=== PATIENT | male | born 1960 | race Caucasian/White ===

== ENCOUNTER 2021-04-17 19:54 | Observation (INO) | payer OTHER ==
[2021-04-17 21:02] LABS: Absolute Lymphocytes (CBC) 1.4 K/uL (0.7-4.9); Basophils % 1.4 % (0-1.3); Hematocrit 31.9 % (39.6-49.0); Lymphocytes % 18.1 % (15.3-44.8); MPV 7.6 fL (7.6-11.3); RBC Red Blood Cell Count 4.62 M/uL (4.33-5.43)
--- NOTE | 2021-04-17 21:02 | ER ---
Nurse's Notes [facility] Name: Raquel Mascorro Age: 60 yrs Sex: Male : 1960 Arrival Date: 04/17/2021 Time: 19:58 Bed 8 Private MD: Diagnosis: COPD/ Chronic obstructive pulmonary disease with (acute) exacerbation;Gastro-esophageal reflux disease with esophagitis Presentation: 04/17 20:03 Chief complaint: Patient states: he has been having difficulty breathing with chest bb pain for about 2 to 3 hours now pt states his chest pain is from his bad acid reflux. Coronavirus screen: difficulty breathing, Client presents with at least one sign or symptom that may indicate coronavirus-19. Standard/surgical mask placed on the client. Ebola Screen: No symptoms or risks identified at this time. Initial Sepsis Screen: Does the patient meet any 2 criteria? No. Patient's initial sepsis screen is negative. Does the patient have a suspected source of infection? No. Patient's initial sepsis screen is negative. Risk Assessment: Do you want to hurt yourself or someone else? Patient reports no desire to harm self or others. Onset of symptoms was April 17, 2021. 20:03 Method Of Arrival: Ambulatory bb 20:03 Acuity: YURIY 2 bb Triage Assessment: 20:04 General: Appears uncomfortable, Behavior is cooperative. Pain: Complains of pain in bb chest Pain currently is 7 out of 10 on a pain scale. Neuro: Level of Consciousness is awake, alert, obeys commands, Oriented to person, place, time, situation. Cardiovascular: Capillary refill < 3 seconds Patient's skin is warm and dry. Respiratory: Reports shortness of breath Respiratory effort is labored, Onset: The symptoms/episode began/occurred suddenly, the patient has mild shortness of breath. Derm: Skin is pink, warm \T\ dry. Musculoskeletal: Circulation, motion, and sensation intact. Historical: - Allergies: 20:04 Lisinopril; bb 20:04 Toradol; bb - Home Meds: 20:04 Unable to obtain [Active]; bb - PMHx: 20:04 Chronic obstructive lung disease; Hypertensive disorder; GERD; bb - PSHx: 20:04 back surgery; left leg amputation; right foot; bb - Immunization history:: Adult Immunizations up to date, Eduardo \T\ Eduardo. - Social history:: Smoking status: Patient reports the use of cigarette tobacco products, smokes one-half pack cigarettes per day, Patient uses alcohol, occasionally. Patient/guardian denies using street drugs. Screenin:45 Abuse screen: Denies threats or abuse. Denies injuries from another. Nutritional jm8 screening: No deficits noted. Tuberculosis screening: No symptoms or risk factors identified. Fall Risk None identified. Assessment: 20:45 Respiratory: Airway is patent Trachea midline Respiratory effort is even, unlabored, jm8 Respiratory pattern is regular, symmetrical, Breath sounds with wheezes bilaterally. 21:23 Cardiovascular: Rhythm is sinus rhythm. jm8 04/18 00:47 Reassessment: Patient and/or family updated on plan of care and expected duration. Pain ak2 level reassessed. Vital Signs: 04/17 20:03 BP 134 / 90; Pulse 97; Resp 20 S; Temp 98.2(O); Pulse Ox 97% on R/A; Weight 77.11 kg bb (R); Height 5 ft. 8 in. (172.72 cm) (R); Pain 7/10; 23:02 BP 145 / 92; Pulse 93; Resp 16; Pulse Ox 96% on R/A; jm8 20:03 Body Mass Index 25.85 (77.11 kg, 172.72 cm) bb ED Course: 19:58 Patient arrived in ED. es 20:04 Triage completed. bb 20:04 Arm band placed on. bb 20:31 Eliu Richardson MD is Attending Physician. molly 20:45 Allergy band placed. Placed in gown. Bed in low position. Call light in reach. Side jm8 rails up X2. 20:54 Cornelio Roland DO is Hospitalizing Provider. molly 21:03 Hospitalizing Provider role handed off by Cornelio Roland DO molly 21:03 Nestor Sharp MD is Hospitalizing Provider. molly 21:03 Eddi Sharp MD is Hospitalizing Provider. molly 21:12 XRAY Chest (1 view) In Process Unspecified. EDMS 21:19 Ezio Jones is Primary Nurse. ak2 23:52 CT Aorta for Dissection In Process Unspecified. EDMS 04/18 07:00 No provider procedures requiring assistance completed. Patient admitted, IV remains in sv place. intact. 09:43 Primary Nurse role handed off by Ezio Jones 09:43 Marisol Tinajero, RN is Primary Nurse. sv Administered Medications: 04/17 21:16 Drug: GI Cocktail without - (Maalox Suspension 30 ml, Lidocaine Liquid 2 % 15 jm8 ml) Route: PO; 21:31 Follow up: Response: No adverse reaction 8 21:16 Drug: ProTONIX (pantoprazole) 40 mg Route: IVP; Site: right antecubital; jm8 21:31 Follow up: Response: No adverse reaction 8 21:16 Drug: NS 0.9% 1000 ml Route: IV; Rate: 125 ml/hr; Site: right antecubital; jm8 21:16 Drug: SOLU-Medrol (methylPrednisoLONE) 125 mg Route: IVP; Site: right antecubital; jm8 21:31 Follow up: Response: No adverse reaction 8 21:16 Drug: Xopenex (levalbuterol) 1.25 mg Route: Inhalation; jm8 21:16 Drug: AtroVENT (ipratropium) Aerosol 0.5 mg Route: Inhalation; jm8 21:16 Drug: Rocephin (cefTRIAXone) 1 grams Route: IV; Rate: per protocol; Site: right [facility] antecubital; 21:17 Follow up: Response: No adverse reaction; IV Status: Completed infusion jm8 21:19 Drug: Zithromax (azithromycin) 500 mg Route: IVPB; Infused Over: 1 hrs; Site: right 8 antecubital; 22:59 Follow up: Response: No adverse reaction; IV Status: Completed infusion jm8 21:28 Drug: morphine 4 mg Route: IVP; Site: right antecubital; jm8 21:52 Follow up: Response: No adverse reaction jm8 21:28 Drug: Zofran (Ondansetron) 4 mg Route: IVP; Site: right antecubital; jm8 21:52 Follow up: Response: No adverse reaction jm8 22:07 Drug: Dilaudid (HYDROmorphone) 1 mg Route: IVP; Site: right antecubital; jm8 23:01 Follow up: Response: No adverse reaction jm8 22:07 Drug: Zofran (Ondansetron) 4 mg Route: IVP; Site: right antecubital; jm8 23:01 Follow up: Response: No adverse reaction jm8 22:07 Drug: Nitroglycerin 0.4 mg Route: Sublingual; jm8 23:02 Follow up: Response: No adverse reaction jm8 22:10 Drug: Aspirin Chewable Tablet 324 mg Route: PO; ak2 23:02 Follow up: Response: No adverse reaction jm8 23:51 Drug: NS 0.9% 1000 ml Route: IV; Rate: 75 ml/hr; Site: right antecubital; ak2 04/18 00:16 Drug: Dilaudid (HYDROmorphone) 1 mg Route: IVP; Site: right antecubital; jm8 04:16 Follow up: Response: No adverse reaction jm8 04:13 Drug: Squires (HYDROcodone-acetaminophen) (7.5 mg-325 mg) 1 tabs Route: PO; jm8 04:16 Follow up: Response: No adverse reaction jm8 04:13 Drug: Ketorolac 30 mg Route: IVP; Site: right antecubital; jm8 04:16 Follow up: Response: No adverse reaction jm8 04:21 Drug: Benadryl (diphenhydrAMINE) 50 mg Route: IVP; Site: right antecubital; jm8 05:25 Follow up: Response: No adverse reaction jm8 04:21 Drug: Pepcid (famotidine) 20 mg Route: IVP; Site: right antecubital; jm8 05:25 Follow up: Response: No adverse reaction jm8 Outcome: 04/17 21:01 Decision to Hospitalize by Provider. molly 04/18 07:00 Admitted to ER Hold. Please see [facility] for further documentation. sv Condition: stable Instructed on the need for admit. 12:33 Patient left the ED. sv Signatures: Dispatcher [employer] Marisol Preciado RN RN sv Anderson, Corey, MD MD cha Salyer, Edna es Ballard, Brenda, RN RN bb Malcaba, Joseph, RN RN jm8 [place], Anthony [facility]
--- NOTE | 2021-04-17 21:02 | EDPHYS ---
Physician Documentation [facility] Name: Raquel Mascorro Age: 60 yrs Sex: Male : 1960 Arrival Date: 04/17/2021 Time: 19:58 Bed 8 Private MD: CHET Physician Eliu Richardson HPI: 04/17 20:47 This 60 yrs old Male presents to ER via Ambulatory with complaints of molly Breathing Difficulty. 20:47 The patient has shortness of breath with light activity. Onset: The symptoms/episode molly began/occurred 3 day(s) ago. Duration: The symptoms are continuous, and are steadily getting worse. The patient's shortness of breath has no apparent modifying factors. Associated signs and symptoms: The patient has no apparent associated signs or symptoms. Severity of symptoms: At their worst the symptoms were moderate in the emergency department the symptoms are unchanged. The patient has experienced similar episodes in the past, multiple times. Historical: - Allergies: 20:04 Lisinopril; bb 20:04 Toradol; bb - Home Meds: 20:04 Unable to obtain [Active]; bb - PMHx: 20:04 Chronic obstructive lung disease; Hypertensive disorder; GERD; bb - PSHx: 20:04 back surgery; left leg amputation; right foot; bb - Immunization history:: Adult Immunizations up to date, Eduardo \T\ Eduardo. - Social history:: Smoking status: Patient reports the use of cigarette tobacco products, smokes one-half pack cigarettes per day, Patient uses alcohol, occasionally. Patient/guardian denies using street drugs. ROS: 20:48 Constitutional: Negative for fever, chills, and weight loss, Eyes: Negative for injury, molly pain, redness, and discharge, ENT: Negative for injury, pain, and discharge, Neck: Negative for injury, pain, and swelling, Cardiovascular: Negative for chest pain, palpitations, and edema, Back: Negative for injury and pain, : Negative for injury, bleeding, discharge, and swelling, MS/Extremity: Negative for injury and deformity, Skin: Negative for injury, rash, and discoloration, Neuro: Negative for headache, weakness, numbness, tingling, and seizure, Psych: Negative for depression, anxiety, suicide ideation, homicidal ideation, and hallucinations, Allergy/Immunology: Negative for hives, rash, and allergies, Endocrine: Negative for neck swelling, polydipsia, polyuria, polyphagia, and marked weight changes, Hematologic/Lymphatic: Negative for swollen nodes, abnormal bleeding, and unusual bruising. 20:48 Respiratory: Positive for cough, with no reported sputum, shortness of breath, at rest. Exam: 20:48 Constitutional: This is a well developed, well nourished patient who is awake, alert, molly and in no acute distress. Head/Face: Normocephalic, atraumatic. Eyes: Pupils equal round and reactive to light, extra-ocular motions intact. Lids and lashes normal. Conjunctiva and sclera are non-icteric and not injected. Cornea within normal limits. Periorbital areas with no swelling, redness, or edema. ENT: Nares patent. No nasal discharge, no septal abnormalities noted. Tympanic membranes are normal and external auditory canals are clear. Oropharynx with no redness, swelling, or masses, exudates, or evidence of obstruction, uvula midline. Mucous membranes moist. Neck: Trachea midline, no thyromegaly or masses palpated, and no cervical lymphadenopathy. Supple, full range of motion without nuchal rigidity, or vertebral point tenderness. No Meningismus. Chest/axilla: Normal chest wall appearance and motion. Nontender with no deformity. No lesions are appreciated. Cardiovascular: Regular rate and rhythm with a normal S1 and S2. No gallops, murmurs, or rubs. Normal PMI, no JVD. No pulse deficits. Abdomen/GI: Soft, non-tender, with normal bowel sounds. No distension or tympany. No guarding or rebound. No evidence of tenderness throughout. Back: No spinal tenderness. No costovertebral tenderness. Full range of motion. Male : Normal genitalia with no discharge or lesions. Skin: Warm, dry with normal turgor. Normal color with no rashes, no lesions, and no evidence of cellulitis. MS/ Extremity: Pulses equal, no cyanosis. Neurovascular intact. Full, normal range of motion. Neuro: Awake and alert, GCS 15, oriented to person, place, time, and situation. Cranial nerves II-XII grossly intact. Motor strength 5/5 in all extremities. Sensory grossly intact. Cerebellar exam normal. Normal gait. Psych: Awake, alert, with orientation to person, place and time. Behavior, mood, and affect are within normal limits. 20:48 Respiratory: mild respiratory distress is noted, Respirations: labored breathing, that is mild, Breath sounds: decreased breath sounds, rhonchi, stridor, is not appreciated, + upper airway congestion. wheezing: expiratory Respiratory rate: 97 21:01 ECG was reviewed by the Attending Physician. molly 22:04 ECG was reviewed by the Attending Physician. [facility] Vital Signs: 20:03 BP 134 / 90; Pulse 97; Resp 20 S; Temp 98.2(O); Pulse Ox 97% on R/A; Weight 77.11 kg bb (R); Height 5 ft. 8 in. (172.72 cm) (R); Pain 7/10; 23:02 BP 145 / 92; Pulse 93; Resp 16; Pulse Ox 96% on R/A; jm8 20:03 Body Mass Index 25.85 (77.11 kg, 172.72 cm) bb MDM: 20:31 Patient medically screened. molly 20:50 Differential diagnosis: Anxiety Reaction asthma, Bronchitis CHF exacerbation, Chronic molly Obstructive Pulmonary Disease pneumonia, pulmonary edema, Unstable Angina bowel obstruction, coronary artery disease, cholecystitis, Cholelithiasis, gastritis, Hepatitis, myocardia ischemia or infarction, non-specific abd pain, pancreatitis, Pyelonephritis, Ureterolithiasis, urinary tract infection. Antibiotic administration: Rocephin and Zithromax given. The patient's Wells Deep Vein Thrombosis Score was calculated as follows: Total Score: 0-2 Pts- Low Risk. The patient's pulmonary embolism risk score was calculated as follows: Total Score: 0-2 points. This patient was found to be at low risk for a pulmonary embolism by using the Well's assessment criteria. Immunization status: Influenza vaccine: Data reviewed: vital signs, nurses notes, lab test result(s), EKG, radiologic studies, plain films. Data interpreted: court recording monitor: rate is 97 beats/min, rhythm is regular, Pulse oximetry: on room air is 97 %. Test interpretation: by ED physician or midlevel provider: ECG, plain radiologic studies. Counseling: I had a detailed discussion with the patient and/or guardian regarding: the historical points, exam findings, and any diagnostic results supporting the discharge/admit diagnosis, lab results, radiology results, the need for further work-up and treatment in the hospital. 04/17 20:47 Order name: Basic Metabolic Panel; Complete Time: 23:35 [facility] 04/17 20:47 Order name: CBC with Diff; Complete Time: 21:59 [facility] 04/17 20:47 Order name: LFT's; Complete Time: 23:35 [facility] 04/17 20:47 Order name: Magnesium; Complete Time: 23:35 [facility] 04/17 20:47 Order name: NT PRO-BNP; Complete Time: 23:35 [facility] 04/17 20:47 Order name: PT-INR; Complete Time: 21:59 [facility] 04/17 20:47 Order name: Troponin (emerg Dept Use Only); Complete Time: 23:35 [facility] 04/17 20:47 Order name: Lipase; Complete Time: 23:35 [facility] 04/17 21:33 Order name: CBC Smear Scan; Complete Time: 21:59 [facility] 04/17 22:43 Order name: SARS-COV-2 RT PCR; Complete Time: 22:58 [facility] 04/18 08:01 Order name: CBC with Automated Diff [facility] 04/18 08:29 Order name: Comprehensive Metabolic Panel [facility] 04/18 08:29 Order name: Troponin I [facility] 04/17 20:47 Order name: XRAY Chest (1 view); Complete Time: 21:22 [facility] 04/17 22:05 Order name: CT Aorta for Dissection [facility] 04/18 08:29 Order name: Lipid Profile [facility] 04/18 08:29 Order name: T4 Free [facility] 04/18 08:29 Order name: Thyroid Stimulating Hormone [facility] 04/18 08:43 Order name: CBC Smear Scan [facility] 04/17 20:47 Order name: EKG; Complete Time: 20:48 [facility] 04/17 20:47 Order name: Cardiac monitoring; Complete Time: 21:23 [facility] 04/17 20:47 Order name: EKG - Nurse/Tech; Complete Time: 21:23 [facility] 04/17 20:47 Order name: IV Saline Lock; Complete Time: 21:23 [facility] 04/17 20:47 Order name: Labs collected and sent; Complete Time: 21:23 [facility] 04/17 20:47 Order name: O2 Per Protocol; Complete Time: 21:23 [facility] 04/17 20:47 Order name: O2 Sat Monitoring; Complete Time: 21:23 [facility] EC:01 Rate is 88 beats/min. Rhythm is regular. QRS [place] is Normal. OK interval is normal. QRS molly interval is normal. QT interval is prolonged at 410 msec. No Q waves. T waves are Normal. No ST changes noted. Clinical impression: NSR w/ Non-specific ST/T Changes and No evidence of ischemia. Interpreted by me. Reviewed by me. 22:04 Rate is 89 beats/min. Rhythm is regular. QRS [place] is Normal. OK interval is normal. QRS molly interval is normal. QT interval is normal. No Q waves. T waves are Normal. No ST changes noted. Clinical impression: NSR w/ Non-specific ST/T Changes and No evidence of ischemia. Interpreted by me. Reviewed by me. Administered Medications: 21:16 Drug: GI Cocktail without - (Maalox Suspension 30 ml, Lidocaine Liquid 2 % 15 jm8 ml) Route: PO; :31 Follow up: Response: No adverse reaction [facility] :16 Drug: ProTONIX (pantoprazole) 40 mg Route: IVP; Site: right antecubital; [facility] :31 Follow up: Response: No adverse reaction [facility] :16 Drug: NS 0.9% 1000 ml Route: IV; Rate: 125 ml/hr; Site: right antecubital; jm8 :16 Drug: SOLU-Medrol (methylPrednisoLONE) 125 mg Route: IVP; Site: right antecubital; 8 :31 Follow up: Response: No adverse reaction [facility] :16 Drug: Xopenex (levalbuterol) 1.25 mg Route: Inhalation; 8 :16 Drug: AtroVENT (ipratropium) Aerosol 0.5 mg Route: Inhalation; 8 :16 Drug: Rocephin (cefTRIAXone) 1 grams Route: IV; Rate: per protocol; Site: right [facility] antecubital; 21:17 Follow up: Response: No adverse reaction; IV Status: Completed infusion jm8 :19 Drug: Zithromax (azithromycin) 500 mg Route: IVPB; Infused Over: 1 hrs; Site: right [facility] antecubital; 22:59 Follow up: Response: No adverse reaction; IV Status: Completed infusion 8 :28 Drug: morphine 4 mg Route: IVP; Site: right antecubital; [facility] 21:52 Follow up: Response: No adverse reaction [facility] :28 Drug: Zofran (Ondansetron) 4 mg Route: IVP; Site: right antecubital; jm8 21:52 Follow up: Response: No adverse reaction jm8 22:07 Drug: Dilaudid (HYDROmorphone) 1 mg Route: IVP; Site: right antecubital; jm8 23:01 Follow up: Response: No adverse reaction jm8 22:07 Drug: Zofran (Ondansetron) 4 mg Route: IVP; Site: right antecubital; jm8 23:01 Follow up: Response: No adverse reaction jm8 22:07 Drug: Nitroglycerin 0.4 mg Route: Sublingual; jm8 23:02 Follow up: Response: No adverse reaction jm8 22:10 Drug: Aspirin Chewable Tablet 324 mg Route: PO; ak2 23:02 Follow up: Response: No adverse reaction jm8 23:51 Drug: NS 0.9% 1000 ml Route: IV; Rate: 75 ml/hr; Site: right antecubital; ak2 04/18 00:16 Drug: Dilaudid (HYDROmorphone) 1 mg Route: IVP; Site: right antecubital; jm8 04:16 Follow up: Response: No adverse reaction jm8 04:13 Drug: [place] (HYDROcodone-acetaminophen) (7.5 mg-325 mg) 1 tabs Route: PO; jm8 04:16 Follow up: Response: No adverse reaction jm8 04:13 Drug: Ketorolac 30 mg Route: IVP; Site: right antecubital; jm8 04:16 Follow up: Response: No adverse reaction jm8 04:21 Drug: Benadryl (diphenhydrAMINE) 50 mg Route: IVP; Site: right antecubital; jm8 05:25 Follow up: Response: No adverse reaction jm8 04:21 Drug: Pepcid (famotidine) 20 mg Route: IVP; Site: right antecubital; jm8 05:25 Follow up: Response: No adverse reaction jm8 Disposition Summary: 04/17/21 21:01 Hospitalization Ordered Hospitalization Status: Observation molly Condition: Fair molly Problem: new molly Symptoms: have improved molly Bed/Room Type: Standard molly Provider: Eddi Sharp(04/17/21 21:03) molly Location: [facility] ER HOLD(04/17/21 23:07) Room Assignment: ERHOLD-(04/17/21 23:07) cg Diagnosis - COPD/ Chronic obstructive pulmonary disease with (acute) exacerbation molly - Gastro-esophageal reflux disease with esophagitis molly Forms: - Medication Reconciliation Form molly - SBAR form molly Signatures: Dispatcher [employer] EDMS Eliu Richardson MD MD cha Munoz, Edgar, RN RN em Ballard, Brenda, RN RN bb Attema, Lee, FNP-Ebony RONDONP-Arnel1 Jeri Vinson RN RN cg Malcaba, Joseph, RN RN jm8 Kapol[place], Anthony ak2 Corrections: (The following items were deleted from the chart) 04/17 21:03 21:01 Cornelio Roland cha [facility] 21:37 20:48 CORONAVIRUS+MR.LAB.BRZ ordered. [facility] 23:07 21:01 Telemetry/MedSurg (observation) [facility] 23: 21:01 molly
[2021-04-17 21:03] LABS: Protime INR 0.91
[2021-04-17] MEDS ORDERED: METHYLPREDNISOLONE 125 MG INJ ONE (21:12)
[2021-04-17] MEDS ORDERED: MAGNES/ALUMIN/SIMET 30ML UCUP ONE (21:12)
[2021-04-17] MEDS ORDERED: IPRATROPIUM BROM 0.5MG/2.5ML ONE (21:13)
[2021-04-17] MEDS ORDERED: PANTOPRAZOLE 40 MG INJ ONE (21:13)
[2021-04-17] MEDS ORDERED: AZITHROMYCIN 500 MG INJ IVPB ONE (21:13)
[2021-04-17] MEDS ORDERED: LEVALBUTEROL 1.25 MG/3 ML NEB ONE (21:13)
[2021-04-17] MEDS ORDERED: LIDOCAINE VISCOUS 2% SOLN 15 ML UDC ONE (21:14)
[2021-04-17] MEDS ORDERED: NA CHLORIDE 0.9% 50 ML ONE (21:14)
[2021-04-17] MEDS ORDERED: NA CHLORIDE 0.9% 250 ML ONE (21:14)
[2021-04-17] MEDS ORDERED: NA CHLORIDE 0.9% 1,000 ML ONE (21:14)
[2021-04-17] MEDS ORDERED: CEFTRIAXONE/SWI 1gm 1 GM/10 ML SYR ONE (21:14)
--- NOTE | 2021-04-17 21:19 | RAD REPORT ---
EXAM DESCRIPTION: RAD - Chest Single View - 04/17/2021 9:12 pm CLINICAL HISTORY: COPD;Cough Chest pain. COMPARISON: <Comparisons> FINDINGS: Portable technique limits examination quality. The lungs are mildly emphysematous but grossly clear. Left pleural thickening is noted. The heart is normal in size. No displaced fractures.
[2021-04-17 21:33] LABS: Platelet Estimate INCR; Platelets, Giant MOD; White Blood Cell Scan OK (OK)
[2021-04-17 21:34] LABS: Anisocytosis 2+; Blood Morphology Comment NOTED (NOT SEEN); Hypochromasia 1+; Macrocytosis 1+
[2021-04-17] MEDS ORDERED: MORPHINE 4 MG/ML SYR ONE (21:48)
[2021-04-17] MEDS ORDERED: ONDANSETRON 4 MG/2 ML VIAL ONE ×2 (21:48→22:24)
[2021-04-17] MEDS ORDERED: NITROGLYCERIN 0.4 MG/TAB SL ONE (22:24)
[2021-04-17] MEDS ORDERED: HYDROMORPHONE HCL 1 MG/ML INJ ONE (22:24)
[2021-04-17] MEDS ORDERED: ASPIRIN 81 MG CHEWABLE TABLET ONE (22:31)
--- NOTE | 2021-04-17 23:15 | P.HP ---
Certification for Inpatient Patient admitted to: Observation With expected LOS: <2 Midnights Patient will require the following post-hospital care: None Practitioner: I am a practitioner with admitting privileges, knowledge of patient current condition, hospital course, and medical plan of care. Services: Services provided to patient in accordance with Admission requirements found in Title 42 Section 412.3 of the Code of Federal Regulations Patient History Date of Service: 04/18/21 Primary Care Provider: Out of town Reason for admission: COPD exacerbation, chest pain History of Present Illness: 60-year-old male with history of COPD, hypertension, GERD presents emergency department for chest pain and shortness of breath. Patient with expiratory wheezing, sharp nonradiating substernal chest pain. EKG, initial troponin, chest x-ray unremarkable, patient still dyspneic, tachypneic, wheezing after nebulizer treatments, steroids in the emergency department, ED provider wishes to admit for further evaluation and management. - Past Medical/Surgical History -: COPD -: GERD -: Hypertension -: Left BKA -: Right ankle surgery -: Back surgery Psychosocial/ Personal History: Disabled, lives with family - Family History Family History: Reviewed- Non-Contributory - Social History Smoking Status: Current every day smoker Counseled patient to stop smoking for: less than 10 minutes Smoking therapy provided: Yes Alcohol use: No CD- Drugs: No Caffeine use: Yes Place of Residence: Home Review of Systems 10-point ROS is otherwise unremarkable Respiratory: Cough, Shortness of Breath, Wheezing Cardiovascular: Chest Pain, As per HPI Physical Examination - Physical Exam General: Alert, In no apparent distress, Oriented x3 HEENT: Atraumatic, PERRLA, Mucous membr. moist/pink Neck: Supple, 2+ carotid pulse no bruit, No LAD Respiratory: Diminished, Expiratory wheezes Cardiovascular: Regular rate/rhythm, Normal S1 S2 Gastrointestinal: Normal bowel sounds, No tenderness Musculoskeletal: No tenderness Integumentary: No rashes Neurological: Normal speech, Normal strength at 5/5 x4 extr, Normal tone, Normal affect - Studies Laboratory Data (last 24 hrs) 04/17/21 20:50: PT 10.4, INR 0.91 04/17/21 20:50: WBC 7.70, Hgb 10.4 L, Hct 31.9 L, Plt Count 504 H Assessment and Plan - Plan Assessment COPD with exacerbation Chest pain rule out ACS Incidental finding of 4 mm pulmonary nodule GERD Hypertension Tobacco abuse Plan COPD with exacerbation: Continue with scheduled nebs, IV steroids, inhalers, incentive spirometry. Will provide patient with p.r.n. pain medication, DVT prophylaxis Lovenox 40 mg subcutaneous once daily. Chest pain rule out ACS: Monitor on telemetry, trend troponins, cardiology consult in place. Daily aspirin, statin therapy. Lipid panel with morning labs. Incidental finding of 4 mm pulmonary nodule: Patient made aware, notified of recommendation for [address] GERD: Continue home medications, will provide patient with Protonix. Hypertension: Continue home med Tobacco abuse: Will provide Nicoderm patch, address need for cessation. Discharge Plan: Home Plan to discharge in: 24 Hours - Advance Directives Does patient have a Living Will: No Does patient have a Durable POA for Healthcare: No - Code Status/Comfort Care Code Status Assessed: Yes (Full code) Critical Care: No Time Spent Managing Pts Care (In Minutes): 55
[2021-04-17 23:32] LABS: ALT/SGPT 18 U/L (12-78); AST/SGOT 13 U/L (15-37); Albumin 3.9 g/dL (3.4-5.0); Alkaline Phosphatase 104 U/L (45-117); BUN Blood Urea Nitrogen 17 mg/dL (7-18); Bicarbonate 23 mmol/L (21-32); Bilirubin Direct 0.1 mg/dL (0-0.2); Bilirubin Total 0.5 mg/dL (0.2-1.0); Glucose Level 106 mg/dL (74-106); Lipase 60 U/L (73-393); Magnesium 2.3 mg/dL (1.8-2.4); NT PRO-BNP 80 pg/mL (<125); Protein, Total 7.6 g/dL (6.4-8.2); Sodium Level 128 mmol/L (136-145); Troponin (Emerg Dept Use Only) < 0.02 ng/mL (0.0-0.045)
[2021-04-18] MEDS ORDERED: HYDROMORPHONE HCL 1 MG/ML INJ ONE (00:35)
[2021-04-18] MEDS ORDERED: HYDROCODONE/APAP 7.5/325 MG TAB ONE (04:25)
[2021-04-18] MEDS ORDERED: KETOROLAC 30 MG/ML INJ ONE (04:26)
[2021-04-18] MEDS ORDERED: FAMOTIDINE 20 MG/2 ML VIAL IV ONE (04:39)
[2021-04-18] MEDS ORDERED: DIPHENHYDRAMINE 50 MG/ML VIAL ONE (04:39)
[2021-04-18] MEDS ORDERED: ONDANSETRON 4 MG/2 ML VIAL IV PRN (07:17)
[2021-04-18] MEDS ORDERED: NA CHLORIDE 0.9% 1,000 ML IV SCH (07:17)
[2021-04-18] MEDS ORDERED: HYDROCODONE/APAP 7.5/325 MG TAB PO PRN (07:17)
[2021-04-18] MEDS: IPRATROPIUM BROM 0.5MG/2.5ML NEB SCH ×2 (07:17→07:59)
[2021-04-18] MEDS: ALBUTEROL 2.5 MG/3 ML NEB SOL NEB SCH ×2 (07:17→07:59)
[2021-04-18] MEDS ORDERED: METHYLPREDNISOLONE 125 MG INJ IV SCH (07:17)
[2021-04-18] MEDS ORDERED: SODIUM CHLORIDE 0.9% 10ML INJ IV PRN (07:17)
[2021-04-18] MEDS ORDERED: ACETAMINOPHEN 500 MG TAB PO PRN (07:17)
[2021-04-18] MEDS ORDERED: MORPHINE 2 MG/ML SYR IV PRN (07:17)
--- NOTE | 2021-04-18 07:43 | EKG ---
Test Date: 2021-04-17 Test Time: 22:00:52 Agile Scrum Master: MEASUREMENT RESULTS: Intervals: Rate: 89 KY: 124 QRSD: 84 QT: 394 QTc: 479 [place]: P: 54 [place]: 124 QRS: 35 T: 49 INTERPRETIVE STATEMENTS: Normal sinus rhythm Nonspecific ST and T wave abnormality Abnormal ECG Compared to ECG 04/17/2021 20:43:28 ST (T wave) deviation now present Atrial premature complex(es) no longer present Prolonged QT interval no longer present Electronically Signed On 04-18-21 07:42:30 CDT by Satinder Mckay
[2021-04-18 07:53] LABS: Absolute Lymphocytes (CBC) 0.4 K/uL (0.7-4.9); Basophils % 0.5 % (0-1.3); Hematocrit 28.4 % (39.6-49.0); Lymphocytes % 8.5 % (15.3-44.8); MPV 7.4 fL (7.6-11.3); RBC Red Blood Cell Count 4.02 M/uL (4.33-5.43)
[2021-04-18] MEDS ORDERED: IPRATROPIUM BROM 0.5MG/2.5ML ONE (08:14)
[2021-04-18] MEDS ORDERED: ALBUTEROL 2.5 MG/3 ML NEB SOL ONE (08:14)
[2021-04-18] MEDS ORDERED: METHYLPREDNISOLONE 125 MG INJ ONE (08:19)
[2021-04-18] MEDS ORDERED: ASPIRIN EC 81 MG TAB PO ONE (08:19)
[2021-04-18] MEDS ORDERED: ENOXAPARIN 40 MG/0.4 ML SQ ONE (08:20)
[2021-04-18] MEDS ORDERED: PANTOPRAZOLE 40 MG INJ ONE (08:20)
[2021-04-18] MEDS ORDERED: SUCRALFATE 1 GM TABLET ONE ×2 (08:20→12:13)
[2021-04-18] MEDS: NICOTINE 14 MG/PAT TD SCH ×2 (08:25→08:57)
[2021-04-18 08:28] LABS: ALT/SGPT 20 U/L (12-78); AST/SGOT 9 U/L (15-37); Albumin 3.4 g/dL (3.4-5.0); Alkaline Phosphatase 96 U/L (45-117); BUN Blood Urea Nitrogen 16 mg/dL (7-18); Bicarbonate 26 mmol/L (21-32); Bilirubin Total 0.4 mg/dL (0.2-1.0); Glucose Level 126 mg/dL (74-106); HDL Cholesterol 68 mg/dL (40-60); LDL Cholesterol, Calculated 106 (<130); Potassium 5.2 mmol/L (3.5-5.1); Protein, Total 6.7 g/dL (6.4-8.2); Sodium Level 129 mmol/L (136-145); Thyroid Stimulating Hormone 0.108 uIU/mL (0.360-3.740); Troponin I < 0.02 ng/mL (0.0-0.045)
[2021-04-18] MEDS: SUCRALFATE 1 GM TABLET PO SCH ×2 (08:30→11:30)
[2021-04-18 08:42] LABS: Anisocytosis 2+; Blood Morphology Comment NOTED (NOT SEEN); Hypochromasia 2+; Platelet Estimate ADEQ; White Blood Cell Scan OK (OK)
[2021-04-18] MEDS ORDERED: ENOXAPARIN 40 MG/0.4 ML SQ SCH (09:00)
[2021-04-18] MEDS ORDERED: DULERA 200/5 (MOMETASONE/FORMOTEROL) INHALER IH SCH (09:00)
[2021-04-18] MEDS ORDERED: ASPIRIN EC 81 MG TAB PO SCH (09:00)
[2021-04-18] MEDS ORDERED: PANTOPRAZOLE 40 MG INJ IVP SCH (09:00)
[2021-04-18] MEDS ORDERED: ACETAMINOPHEN 500 MG TAB ONE (09:15)
[2021-04-18] MEDS ORDERED: MORPHINE 2 MG/ML SYR ONE (10:13)
[2021-04-18] MEDS ORDERED: ONDANSETRON 4 MG/2 ML VIAL ONE (10:13)
--- NOTE | 2021-04-18 10:46 | RAD REPORT ---
EXAM DESCRIPTION: CT - Angio Aorta For Dissection - 04/18/2021 6:51 am CLINICAL HISTORY: Chest pain;Cough;Dissection;PE COMPARISON: None Available. TECHNIQUE: CTA of the chest, abdomen and pelvis performed following IV administration of iodinated c ontrast. 3-D/MIP reformatted images available. This exam was performed according to our departmental dose-optimization program, which includes automated exposure control, adjustment of the mA and/or kV according to patient size and/or use of iterative reconstruction technique. FINDINGS: CTA: Ascending thoracic aorta measuring 3.3 cm. Aortic arch measures 3.4 cm in diameter. Proximal descending thoracic aorta measures 2.9 cm. Distal descending thoracic aorta measures 2.8 cm. Atherosclerotic calcification of the thoracic aorta. No evidence of dissection. The great vessels natarajan ve normal anatomic configuration. Abdominal aorta is normal caliber with aortoiliac atherosclerosis. There is in-line flow into the com mon iliac, external iliac, common femoral, proximal superficial femoral arteries. The profunda femora l and internal iliac arteries are patent. The visceral arteries are widely patent. The renal arteries are patent. The pulmonary arteries demonstrate no filling defects. Chest: Thyroid: No abnormalities of the visualized thyroid. Heart: No cardiomegaly or significant pericardial effusion. Coronary artery atherosclerosis. Lymph Nodes: No enlarged mediastinal lymph nodes identified. Esophagus: No abnormalities of the esophagus identified Other: No additional findings. Lungs: No airspace opacities identified. Centrilobular emphysematous changes. There is a 4 mm solid p ulmonary nodule best seen on image #47, series #4 1 in the superior segment of the left lower lobe. Pleura: No pleural effusion or pneumothorax. Trachea/Airways: No abnormalities of the visualized trachea or airways. Abdomen: Liver: The liver has normal size and decreased density. No intrahepatic mass or biliary dilatation. Gallbladder: No calcified gallstones. Spleen, Pancreas, and Adrenal Glands: The spleen, pancreas, and adrenal glands are unremarkable. Kidneys: The kidneys have normal size and contour without evidence of solid mass or hydronephrosis. Vasculature: IVC is unremarkable. Portal vein is patent. Stomach: The stomach and duodenum have normal course. Other: No free intraperitoneal air. No free fluid or lymphadenopathy. Tiny fat-containing umbilic al hernia. Pelvis: Bladder: Urinary bladder is unremarkable. Bowel: No dilated loops of large or small bowel. Wall thickening of the sigmoid colon. Scattered di verticula of the colon. Appendix: Normal appendix. Pelvis: Prostate is not enlarged. Bones: Posterior fixation at L5/S1. Mild multilevel endplate spondylosis. IMPRESSION: 1. No evidence of aortic dissection or aneurysm. No pulmonary embolus. 2. Wall thickening of the sigmoid colon. These findings could be seen with nonspecific colitis or m ay be related to underdistention. 3. Diverticulosis without evidence of acute diverticulitis. 4. Coronary artery atherosclerosis. 5. Hepatic steatosis. 6. Centrilobular emphysematous change. 7. 4 mm left solid pulmonary nodule within the superior segment of the left lower lobe. A non-contr ast Chest CT at 12 months is optional. If performed and the nodule is stable at 12 months, no further follow-up is recommended. These guidelines do not apply to immunocompromised patients and patients w ith cancer. Follow up in patients with significant comorbidities as clinically warranted. For lung ca ncer screening, adhere to Lung-RADS guidelines. Reference: Radiology. 2017; 284(1):228-43. Electronically signed by: Gabriele Rojas 04/18/2021 12:23 AM CDT Due to temporary technical issues with the PACS/Fluency reporting system, reports are being signed by the in house radiologist without review as a courtesy to ensure prompt reporting. The interpreting r adiologist is fully responsible for the content of the report.
--- NOTE | 2021-04-18 20:09 | P.DS ---
Admission Date: 04/17/21 Discharge Date: 04/18/21 Primary Care Provider: Out of town Disposition: ROUTINE DISCHARGE Discharge Condition: FAIR Reason for Admission: COPD exacerbation, chest pain Consultations: Cardiology - Dr. Mckay Procedures: CXR (04/17): The lungs are mildly emphysematous but grossly clear. Left pleural thickening is noted. The heart is normal in size. No displaced fractures. CT Dissection (04/17): IMPRESSION: 1. No evidence of aortic dissection or aneurysm. No pulmonary embolus. 2. Wall thickening of the sigmoid colon. These findings could be seen with nonspecific colitis or may be related to underdistention. 3. Diverticulosis without evidence of acute diverticulitis. 4. Coronary artery atherosclerosis. 5. Hepatic steatosis. 6. Centrilobular emphysematous change. 7. 4 mm left solid pulmonary nodule within the superior segment of the left lower lobe. A non-contrast Chest CT at 12 months is optional. If performed and the nodule is stable at 12 months, no further follow-up is recommended. These guidelines do not apply to immunocompromised patients and patients with cancer. Follow up in patients with significant comorbidities as clinically warranted. For lung cancer screening, adhere to Lung-RADS guidelines. Reference: Radiology. 2017; 284(1):228-43. Problem List acute on chronic COPD with exacerbation Epigastric pain, secondary to GERD / suspect gastric ulcer Incidental finding of 4 mm pulmonary nodule Hypertension Tobacco abuse Brief History of Present Illness: 60-year-old male with history of COPD, hypertension, GERD presents emergency department for chest pain and shortness of breath. Patient with expiratory wheezing, sharp nonradiating substernal chest pain. EKG, initial troponin, chest x-ray unremarkable, patient still dyspneic, tachypneic, wheezing after nebulizer treatments, steroids in the emergency department, ED provider wishes to admit for further evaluation and management. Hospital Course: Patient's shortness of breath and wheeze resolved with treatment for COPD exacerbation. Discharged with prescription for prednisone 20mg BID x 4days Chest pain was more epigastric pain and tenderness, consistent with gastritis vs gastric ulcer. Patient reported h/o gastric ulcer and takes omeprazole daily and carafate BID. He had relief of his pain with GI cocktail in ED. Cardiology was consulted, EKG without ischemia, troponin remained negative, recommended no further cardiac workup. Patient felt better and requested to be discharged, stating he is from out of town and would like to be discharged to see his PCP later today vs tomorrow morning. Vital Signs/Physical Exam: Temp Pulse Resp BP Pulse Ox 98.2 F 82 18 136/79 98 04/17/21 20:03 04/18/21 12:00 04/18/21 12:00 04/18/21 12:00 04/18/21 12:00 General: Alert, In no apparent distress, Oriented x3 HEENT: Mucous membr. moist/pink, Sclerae nonicteric Neck: Supple Respiratory: Clear to auscultation bilaterally, Normal air movement Cardiovascular: No edema, Regular rate/rhythm, Normal S1 S2 Gastrointestinal: Soft and benign, Non-distended, Tenderness (epigastrium) Musculoskeletal: No erythema Integumentary: No rashes, No significant lesion Neurological: Normal speech, Normal affect Laboratory Data at Discharge: WBC 4.20 K/uL (4.3-10.9) L D 04/18/21 07:40 Hgb 8.7 g/dL (13.6-17.9) L 04/18/21 07:40 Hct 28.4 % (39.6-49.0) L 04/18/21 07:40 Plt Count 465 K/uL (152-406) H 04/18/21 07:40 PT 10.4 SECONDS (9.5-12.5) 04/17/21 20:50 INR 0.91 04/17/21 20:50 Sodium 129 mmol/L (136-145) L 04/18/21 07:40 Potassium 5.2 mmol/L (3.5-5.1) H 04/18/21 07:40 BUN 16 mg/dL (7-18) 04/18/21 07:40 Creatinine 0.83 mg/dL (0.55-1.3) 04/18/21 07:40 Glucose 126 mg/dL (74-106) H 04/18/21 07:40 Magnesium 2.3 mg/dL (1.8-2.4) 04/17/21 23:00 Total Bilirubin 0.4 mg/dL (0.2-1.0) 04/18/21 07:40 AST 9 U/L (15-37) L 04/18/21 07:40 ALT 20 U/L (12-78) 04/18/21 07:40 Alkaline Phosphatase 96 U/L (45-117) 04/18/21 07:40 Troponin I Cancelled 04/18/21 13:17 Triglycerides 68 mg/dL (<150) 04/18/21 07:40 Cholesterol 188 mg/dL (<200) 04/18/21 07:40 HDL Cholesterol 68 mg/dL (40-60) H 04/18/21 07:40 Cholesterol/HDL Ratio 2.76 04/18/21 07:40 Lipase 60 U/L (73-393) L 04/17/21 23:00 Home Medications: Albuterol Inhaler [Ventolin Inhaler*] 2 puff IH Q4H PRN 04/18/21 Gabapentin 400 mg PO QID 04/18/21 Hydrocodone 10/APAP 325 [[place] 10/325*] 1 tab PO Q6H 04/18/21 Losartan Potassium 100 mg PO DAILY 04/18/21 Mirtazapine [Remeron*] 15 mg PO BEDTIME 04/18/21 Montelukast [Singulair*] 10 mg PO DAILY 04/18/21 Omeprazole [Prilosec] 40 mg PO DAILY 04/18/21 Sucralfate [Carafate*] 1 gm PO TID 04/18/21 Zolpidem Tartrate [Ambien*] 10 mg PO BEDTIME 04/18/21 predniSONE [Prednisone] 20 mg PO BID 4 Days #8 tablet 04/18/21 New Medications: predniSONE [Prednisone] 20 mg PO BID 4 Days #8 tablet Physician Discharge Instructions: PROBLEM: COPD/GERD GOAL: Clear understanding of disease process INSTRUCTIONS: Diet: Clark Activity: As tolerated IMMUNIZATION Influenza Vaccine Indicated: Influenza Vaccine Given: Date Given: Pneumonia Vaccine Indicated: No Pneumonia Vaccine Given: Date Given: Your upper stomach/lower chest pain is unlikely to be due to your heart. EKG and cardiac enzymes were normal. This seems most consistent with gastric pain - likely from your known ulcer. Recommend increasing your omeprazole to twice a day. Continue carafate. You were also noted to have a mild COPD exacerbation and prescribed prednisone follow up with your PCP in 3-5 days follow up with your GI doctor as soon as possible, would likely benefit from an EGD Diet: Clark Activity: Ad alena Followup: NONE,NONE [Primary Care Provider] - Time spent managing pt's care (in minutes): 40
--- NOTE | 2021-04-19 08:03 | EKG ---
Test Date: 2021-04-17 Test Time: 20:43:28 Patient Appointment Coordinator: REDD MEASUREMENT RESULTS: Intervals: Rate: 88 [place]: 140 QRSD: 76 QT: 410 QTc: 496 [place]: P: 60 [place]: 140 QRS: 44 T: 32 INTERPRETIVE STATEMENTS: Sinus rhythm with premature supraventricular complexes Prolonged QT Abnormal ECG No previous ECG available for comparison Electronically Signed On 04-19-21 08:03:03 CDT by Satinder Mckay
--- NOTE | 2021-04-23 08:50 | CON ---
History Of Present Illness: Mr. Mascorro is a -bhtl-lao white male with a history of COPD, hy pertension, gastroesophageal reflux disease, left leg amputation, back surgery, right foot surgery, magdy minaya rather confused we were unable to obtain his medication history but we do know he is allergic to lisinopril and tramadol. He mostly came in with COPD exacerbation. No chest pain. Denies any naus ea, vomiting, diaphoresis, PND, pedal edema, palpitations, or syncope. Past Medical History: As stated earlier. Allergies: STATED EARLIER. Medications: . Family History: Negative. Social History: Positive for tobacco use. Physical Examination: Vital Signs: Stable. He was afebrile. HEENT: Negative. Neck: Supple without any bruit, lymphadenopathy, JVD, or thyromegaly. Chest: Reveals some expiratory wheezing . Abdomen: Benign. Extremities: Reveal no clubbing, cyanosis, or edema. Laboratory Data: Hemoglobin was 10.4. Creatinine was normal. He was slightly dehydrated with a sod ium 129. His TSH was low at 0.108. Chest x-ray basically showing mild emphysema. EKG shows sinus r hythm with PACs basically showing diverticulosis, coronary atherosclerosis, hepatic steato sis, emphysema, but no pulmonary embolism or dissection. Impression And Plan: 1.Chronic obstructive pulmonary disease exacerbation. 2.Anemia. 3.Coronary atherosclerosis by CT, comfortable with . DANIELE/KLEVER Voice ID: [id number] Report ID: [id number]
== END 2021-04-18 12:30 | disposition home or self-care (01) ==
LOC: ER 19:54 → ERHOLD 22:52
PROVIDERS: ADMIT Hospitalist; ATTEND Hospitalist
DX: J44.1 Chronic obstructive pulmonary disease with (acute) exacerbation (principal); K21.9 Gastro-esophageal reflux disease without esophagitis; R91.1 Solitary pulmonary nodule; I10 Essential (primary) hypertension; F17.210 Nicotine dependence, cigarettes, uncomplicated; D64.9 Anemia, unspecified; Z20.822 Contact with and (suspected) exposure to COVID-19; I25.10 Atherosclerotic heart disease of native coronary artery without angina pectoris; E86.0 Dehydration; Z89.512 Acquired absence of left leg below knee
CPT/HCPCS: 96365; 93005 ×2; 85025 ×2; 80048; 36415; 83735; 85610; 80061; 80076; 84443; 84484 ×2; 84439; 83690; 80053; 83880; 71275; 74175; 71045; 94640; 96375; 99285; 96366; U0003; Q9967; J1200; C9113 ×2; J0456; J1650; J2270; J1170 ×2; J0696; J7050; J7030; J2930 ×2; J2405 ×3; G0378 ×2; J7606